=== PATIENT | female | born 2000 | race African-American/Black ===

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

== ENCOUNTER 2021-05-23 14:13 | Emergency (ER) | payer MEDICAID, SELFPAY ==
[2021-05-23 14:14] VITALS: BP 162/91; PULSE 101; RESP 17; TEMP 36.2; O2SAT 98; BMI 50.2
[2021-05-23] MEDS: Naproxen 250 MG Tablet 500 MG PO (14:36)
--- NOTE | 2021-05-23 14:37 | EDS_ITS ---
HPI <Dr. Erica Choudhury MD - Last Filed: 05/23/21 16:15> History of Present Illness Chief Complaint: Cold Sx <KIRAN WAY - Last Filed: 05/23/21 15:36> History of Present Illness Informant: patient Onset/Context/Timing Onset: Yesterday Context: Gradual Onset Timing: Continuous Current Severity: 09/20 Narrative Narrative: Patient presents secondary to sore throat and productive cough with chest pain. Patient developed sore throat yesterday and cough with yellow/clear sputum today. Patient describes chest pain, 09/20, as burning and worse with cough. Patient took Tylenol at 10 AM. Patient denies fever, chills, body aches. Patient took home Covid test yesterday which was negative. PFSH <Dr. Erica Choudhury MD - Last Filed: 05/23/21 16:15> PFSH Medical History no medical history Home Medications NK 05/23/21 [History Last Taken Unknown] Allergy/AdvReac Type Severity Reaction Status Date / Time amoxicillin [From Augmentin] Allergy Rash Verified 05/23/21 14:15 clavulanic acid Allergy Rash Verified 05/23/21 14:15 [From Augmentin] Surgical History no surgical history Social History (Updated 05/23/21 @ 14:[address]) Smoking Status: Current some day smoker tobacco type: cigarettes alcohol intake: current alcohol intake frequency: a few times a month substance use type: does not use <KIRAN WAY - Last Filed: 05/23/21 15:36> PFS no medical history no surgical history <KIRAN WAY - Last Filed: 05/23/21 15:36> ROS ED Constitutional Constitutional ED: Denies chills or fever(s) Eyes Eyes: Denies blurry vision or diplopia ENT ENT ED: Reports sore throat and other Details: Pain with swallowing ; Denies ear pain or rhinorrhea Cardiovascular Cardiovascular: Reports chest pain; Denies dizziness or dyspnea at rest Respiratory/Chest Respiratory/Chest: Reports cough and sputum; Denies dyspnea Gastrointestinal Gastrointestinal: Denies abdominal pain, nausea or vomiting Genitourinary Genitourinary ED: Denies dysuria or hematuria Musculoskeletal Musculoskeletal: Denies arthralgias, myalgias or neck pain Integumentary Denies rash Neurologic Neurologic: Denies headache(s) or weakness Psychiatric Psychiatric: Denies depression Endocrine Endocrinology: Denies polydipsia or polyuria EXAM <Dr. Erica Choudhury MD - Last Filed: 05/23/21 16:15> Physical Exam Const Vital Signs: 05/23/21 14:14 05/23/21 14:20 Temperature 97.2 F L Temperature Source Temporal Pulse Rate 101 H Respiratory Rate 17 Respiratory Effort Normal Non-Labored Respiratory Depth Normal Respiratory Pattern Normal Blood Pressure 162/91 H Blood Pressure Mean 114 Pulse Ox 98 Oxygen Delivery Method Room Air <KIRAN WAY - Last Filed: 05/23/21 15:36> Physical Exam Const Vital Signs: 05/23/21 14:14 05/23/21 14:20 Temperature 97.2 F L Temperature Source Temporal Pulse Rate 101 H Respiratory Rate 17 Respiratory Effort Normal Non-Labored Respiratory Depth Normal Respiratory Pattern Normal Blood Pressure 162/91 H Blood Pressure Mean 114 Pulse Ox 98 Oxygen Delivery Method Room Air Positive well nourished and well developed General Appearance ED: well developed HEENT Reports TM's clear and moist mucous membranes normocephalic Face and Sinus: sinuses nontender Nose: nares normal and no nasal discharge Tympanic Membrane ED: Yes TM's clear Throat: uvula midline, tonsils abnormal bilateral (2+) erythema and posterior oropharynx abnormal Positive for erythema; Negative for hoarseness Eyes PERRL and EOMs intact bilaterally Neck no lymphadenopathy and supple General: Negative for tenderness Chest Wall palpation of chest normal Resp normal respiratory effort and clear to auscultation bilaterally Cardio regular rate and regular rhythm GI normal to inspection, nondistended, normoactive bowel sounds and non-tender Extremity normal to inspection Neuro oriented x3 Sensorium / Orientation: alert Psych mental status grossly normal Skin no rashes or lesions noted MDM <Dr. Erica Choudhury MD - Last Filed: 05/23/21 16:15> MDM Radiography Diagnostic Testing: Clinical Impression(s) from Imaging Studies Chest X-Ray 05/23/21 14:40 IMPRESSION: Normal x-ray examination of the chest. Electronically Signed: Eusebio Casey MD at 15:20 EST , Treatment and Re-Evaluation Narrative: Patient seen and evaluated with TELE[employer] student. I personally interviewed and examined the patient. I was involved in all aspects of patient's orders, interpretation of results, and treatment. Patient present secondary to chest congestion, sore throat, cough. No fever or chills. She reports coworker ill with similar symptoms. She does report yellow sputum when she is able to produce it. Denies significant shortness of breath or wheezing. Patient sitting upright in bed no acute distress. Nontoxic appearing. She was observed ambulating to the room without difficulty. Head and neck examination reveals posterior pharyngeal drainage. Uvula midline. Heart is regular rate and rhythm. Lung sounds are clear. Abdomen is soft and nontender. Neuro exam unremarkable. Covid swab obtained and negative. Chest x-ray per my interpretation reveals no focal infiltrate. Radiologist interpretation also reviewed. Patient given supportive care instructions at home. Return instructions given. <KIRAN WAY - Last Filed: 05/23/21 15:36> [facility] MDM Narrative Medical decision making narrative: Patient treated with naproxen for chest pain. Rapid Covid and chest x-ray obtained. Lab Data Attestation: I reviewed the patient's lab results. Radiography Chest X-Ray - ED: 2 View, Normal and No Infiltrates Diagnostic Testing: Clinical Impression(s) from Imaging Studies Chest X-Ray 05/23/21 14:40 IMPRESSION: Normal x-ray examination of the chest. Electronically Signed: Eusebio Casey MD at 15:20 EST , Treatment and Re-Evaluation Narrative: On reevaluation, patient states chest pain is improved. Results discussed with patient, and informed likely viral cause. Patient understanding of home care instructions for symptomatic treatment. Patient will be given fo llow-up instructions. Patient understands reasons for return. Discharge Plan Triage Chief Complaint: Cold Sx ED Provider: Erica Choudhury Dx/Rx/DC Orders Clinical Impression: Viral syndrome Instructions: ED Viral Syndrome (Adult) Prescriptions: No Action NK RF: 0 Primary Care Provider: Care Physician,No Primary Referrals: Willie Finnegan MD [STAFF PHYSICIAN] - 10-14 Days if not better Care Physician,No Primary [Primary Care Provider] - Disposition Disposition: Home, Self Care Discharge Date/Time: 05/23/21 15:40
--- NOTE | 2021-05-23 14:40 | RAD_ITS ---
STUDY: X-RAY CHEST REASON FOR EXAM: Female, 20 years old. productive cough TECHNIQUE: PA and lateral views of the chest. COMPARISON: None. FINDINGS: The lungs are clear and expanded. There is no demonstrated pleural abnormality. Normal size heart. Normal mediastinum and alberto. Normal visualized pulmonary arteries. Normal visualized aortic arch and descending thoracic aorta. Normal visualized thoracic spine. Normal visualized ribs, clavicles, and shoulders. There is no demonstrated abnormality of the visualized soft tissue structures of the upper abdomen. RAD/Chest PA and Lateral IMPRESSION: Normal x-ray examination of the chest. Electronically Signed: Eusebio Casey MD at 15:20 EST ,
== END 2021-05-23 15:40 | disposition home or self-care (01) ==
PROVIDERS: Emergency Provider Emergency Medicine; Visit Provider Emergency Medicine
DX: B34.9 Viral infection, unspecified (principal); F17.210 Nicotine dependence, cigarettes, uncomplicated; R07.9 Chest pain, unspecified; Z20.822 Contact with and (suspected) exposure to COVID-19; R05.9 Cough, unspecified
CPT/HCPCS: 71046; 87811; 99283

== ENCOUNTER 2021-09-06 16:13 | Emergency (ER) | payer MEDICAID, SELFPAY ==
[2021-09-06 16:14] VITALS: BP 154/99; PULSE 108; RESP 16; TEMP 36.6; O2SAT 100; BMI 53.6
--- NOTE | 2021-09-06 16:35 | EX.ED.DYSGE1 ---
HPI History of Present Illness Chief Complaint: Fatigue Informant: patient Onset/Context/Timing Onset: Weeks Narrative Narrative: Patient presents with generalized fatigue and back aches. She started her last menstrual cycle 1 month ago. She bled for 3 weeks. She states she started to spot again and believe she is going to start which would be her normal time. She states this is very abnormal for her. She usually bleeds for about 4 days at a time and is very regular. She denies possibility of . Because she is fatigued and has backaches a coworker suggested she should be evaluated. She does not have a doctor to go to so she came to the emergency room. [facility] PFS Medical History no medical history no medical history Home Medications NK 05/23/21 [History Last Taken Unknown] Allergy/AdvReac Type Severity Reaction Status Date / Time amoxicillin [From Augmentin] Allergy Rash Verified 09/06/21 16:16 clavulanic acid Allergy Rash Verified 09/06/21 16:16 [From Augmentin] Surgical History no surgical history Social History Smoking Status: Current some day smoker tobacco type: cigarettes alcohol intake: current alcohol intake frequency: a few times a month substance use type: does not use ROS ROS ED Constitutional Constitutional ED: Denies chills or fever(s) Eyes Eyes: Denies change in vision or discharge from eye(s) ENT ENT ED: Denies discharge from eye(s), rhinorrhea or sore throat Cardiovascular Cardiovascular: Denies chest pain or palpitations Respiratory/Chest Respiratory/Chest: Denies cough or dyspnea Gastrointestinal Gastrointestinal: Denies abdominal pain, diarrhea, nausea or vomiting Genitourinary Genitourinary ED: Denies difficulty urinating or dysuria Musculoskeletal Musculoskeletal: Reports back pain; Denies extremity pain Integumentary Denies Abrasions or rash Neurologic Neurologic: Reports other Details: Generalized fatigue ; Denies headache(s) or weakness Allergic/Immunologic Allergic/Immunologic ED: Denies lip swelling or urticaria EXAM Physical Exam Const Vital Signs: 09/06/21 16:14 09/06/21 16:28 09/06/21 18:20 Temperature 97.8 F Temperature Source Temporal Pulse Rate 108 H Respiratory Rate 16 16 Respiratory Effort Normal Non-Labored Blood Pressure 154/99 H Blood Pressure Mean 117 Pulse Ox 100 Oxygen Delivery Method Room Air Positive well nourished and well developed General Appearance ED: well developed HEENT Reports moist mucous membranes Eyes PERRL and EOMs intact bilaterally Chest Wall inspection of chest normal and palpation of chest normal Resp normal respiratory effort and clear to auscultation bilaterally Cardio regular rate and regular rhythm GI normal to inspection, nondistended, normoactive bowel sounds, non-tender and non-distended Extremity normal to inspection Neuro oriented x3 and no sensory deficits noted Motor Exam: strength 5/5 throughout Skin no rashes or lesions noted MDM MDM MDM Narrative Medical decision making narrative: Patient is given IV fluids and Toradol. Lab work and urinalysis obtained. Lab Data Attestation: I reviewed the patient's lab results. Labs: Laboratory Results - last 24 hr 09/06/21 09/06/21 09/06/21 16:42 16:42 16:42 WBC 12.5 H RBC 4.64 Hgb 12.5 Hct 41.6 MCV 89.7 MCH 26.9 L MCHC 30.0 L RDW Std Deviation 45.1 H RDW Coeff of Lux 13.9 Plt Count 489 H MPV 9.8 Immature Gran % (Auto) 0.400 Neut % (Auto) 65.5 Lymph % (Auto) 24.9 [place] % (Auto) 7.0 Eos % (Auto) 1.7 Baso % (Auto) 0.5 Absolute Neuts (auto) 8.2 H Absolute Lymphs (auto) 3.11 Nucleated RBC % 0 Sodium 140 Potassium 3.7 Chloride 107 Carbon Dioxide 27.0 Anion Gap 6 BUN 17 Creatinine 1.01 Estim Creat Clear Calc 99.31 Est GFR (MDRD) Af Amer 89 Est GFR (MDRD) Non-Af 74 BUN/Creatinine Ratio 16.8 Glucose 105 Calcium 8.7 Serum , Qual NEGATIVE Urine Color Urine Clarity Urine pH Ur Specific [place] Urine Protein Urine Glucose (UA) Urine Ketones Urine Occult Blood Urine Nitrite Urine Bilirubin Urine Urobilinogen Ur Leukocyte Esterase 09/06/21 17:47 WBC RBC Hgb Hct MCV MCH MCHC RDW Std Deviation RDW Coeff of Lux Plt Count MPV Immature Gran % (Auto) Neut % (Auto) Lymph % (Auto) [place] % (Auto) Eos % (Auto) Baso % (Auto) Absolute Neuts (auto) Absolute Lymphs (auto) Nucleated RBC % Sodium Potassium Chloride Carbon Dioxide Anion Gap BUN Creatinine Estim Creat Clear Calc Est GFR (MDRD) Af Amer Est GFR (MDRD) Non-Af BUN/Creatinine Ratio Glucose Calcium Serum , Qual Urine Color Yellow Urine Clarity Clear Urine pH 5.0 Ur Specific [place] 1.030 Urine Protein 15 H Urine Glucose (UA) Normal Urine Ketones Negative Urine Occult Blood Negative Urine Nitrite Negative Urine Bilirubin Negative Urine Urobilinogen Normal Ur Leukocyte Esterase Negative Treatment and Re-Evaluation Narrative: Lab work reveals a white count of 12.5 but normal differential. Chemistry studies unremarkable. test negative. Urinalysis reveals no infection. Test results discussed with the patient. She will continue supportive care. She will be referred to Dr. Guo, on-call for no doc [employer]LEVISION [employer]. Her mother is also researching area TELEVIS[employer]CHOR's for her to follow-up with. Return instructions provided. Discharge Plan Triage Chief Complaint: Fatigue ED Provider: Erica Choudhury Dx/Rx/DC Orders Clinical Impression: Generalized weakness, Menorrhagia Instructions: ED Heavy Menstrual Bleeding, ED Weakness (Uncertain Cause) Prescriptions: No Action NK Primary Care Provider: Care Physician,No Primary Referrals: Erica Arguelles DO [STAFF PHYSICIAN] - As Needed Care Physician,No Primary [Primary Care Provider] - Disposition Disposition: Home, Self Care
[2021-09-06] MEDS: Ketorolac 30 MG/ML Syringe IV (16:52)
[2021-09-06] MEDS: 0.9% Normal Saline 1,000 ML 1000 ML IV (16:52)
[2021-09-06 17:00] LABS: Absolute Lymphocyte Count 3.11 X10^3/uL (0.83-4.51); Absolute Neutrophil Count 8.2 X10^3/uL (2.0-7.7); Basophil# 0.06 X10^3/uL; Basophil% 0.5 % (0-1); Eosinophil# 0.21 X10^3/uL; Eosinophils% 1.7 % (0-5); Hematocrit 41.6 % (37-47); Hemoglobin 12.5 g/dL (12.0-15.0); Lymphocyte # 3.11 X10^3/ul (0.83-4.51); Lymphocyte % 24.9 % (19-41); Mean Corpuscular Hgb 26.9 pg (27.0-32.0); Mean Corpuscular Volume 89.7 fL (81-99); Mean Platelet Vol. 9.8 fl (6.2-12.0); Monocyte# 0.87 X10^3/uL; NRBC Flagged by Analyzer 0 % (0-5); Neutrophil % 65.5 % (47-70); Platelet Count 489 K/mm3 (150-450); RBC Distribution Width CV 13.9 % (11.6-14.6); RBC Distribution Width SD 45.1 fl (35.1-43.9); Red Blood Count 4.64 M/mm3 (4.2-5.4); White Blood Count 12.5 K/mm3 (4.4-11.0)
[2021-09-06 17:12] LABS: Internal QC Validated? YES +Cl - CLEAR BKGD; Pregnancy, Serum, hCG Quali. NEGATIVE Negative
[2021-09-06 17:13] LABS: Anion Gap 6 (5-15); BUN 17 mg/dL (7-18); BUN/Creat Ratio 16.8 RATIO (10-20); Calcium,Total 8.7 mg/dL (8.5-10.1); Chloride 107 mmol/L (98-107); Creatinine, Serum 1.01 mg/dL (0.55-1.02); EST Glomerular Filtration Rate 74 mL/min (>60); Est Glom Filt Rate - Afr Amer 89 mL/min (>60); Estimated Creatinine Clearance 99.31 ml/min; Glucose 105 mg/dL (74-106); Potassium 3.7 mmol/L (3.5-5.1); Sodium Level 140 mmol/L (136-145)
[2021-09-06 17:56] LABS: Red Blood Cells-Urine 0 SEEN /hpf (0-5)
[2021-09-06 18:01] LABS: Color, Urine Yellow (Yellow); Glucose, Dipstick Normal (Normal); Ketone-Dipstick Negative (Negative); Leukocyte Esterase-Dipstick Negative /ul (Negative); Nitrite-Dipstick Negative (Negative); Occult Blood-Urine Negative /ul (Negative); Protein-Dipstick 15 mg/dl (Negative); Urine Bilirubin Dipstick Negative (Negative); Urine Clarity Clear (Clear); Urine Urobilinogen Normal (Normal)
[2021-09-06 18:20] VITALS: RESP 16
[2021-09-06 18:21] LABS: Squamous Epithelial Cells - UA 5-10 SEEN /hpf (5-10); White Blood Cells 0-5 SEEN /hpf (0-5)
[2021-09-06 18:22] LABS: Bacteria 3+ /hpf (None Seen); Mucous, Urine 2+ /hpf (<or=2+)
== END 2021-09-06 18:32 | disposition home or self-care (01) ==
PROVIDERS: Emergency Provider Emergency Medicine; Visit Provider Emergency Medicine
DX: R53.1 Weakness (principal); N92.0 Excessive and frequent menstruation with regular cycle; F17.210 Nicotine dependence, cigarettes, uncomplicated
CPT/HCPCS: 80048; 81001; 84703; 85025; 96361; 96374; 99283; J7030; A4216

== ENCOUNTER 2021-10-11 14:45 | Emergency (ER) | payer MEDICAID, SELFPAY ==
[2021-10-11 14:46] VITALS: BP 163/101; PULSE 76; RESP 16; TEMP 36.6; O2SAT 99; BMI 52.9
--- NOTE | 2021-10-11 15:22 | ED.VIS.LOWEX ---
HPI History of Present Illness HPI Narrative: Patient presents with right ankle injury that occurred yesterday. Patient states she inverted her right ankle. Patient did not hear any snapping or popping sensation. Patient states her pain is sharp and it is worse with any standing or weightbearing. Patient denies any paresthesias or weakness. Patient denies any pain over the fifth metatarsal or proximal fibula. Patient denies any head injury or loss of consciousness. Patient denies any other injuries. Chief Complaint: Lower Extremity Injury Informant: patient Occured/Mechanism Comment: Inversion injury Onset/Context/Timing Onset: Yesterday Context: Sudden Onset Timing: Continuous Quality of Pain: Sharp Location: Right ankle Worsened by: Standing Relieved by: Rest Associated Symptoms Associated Symptoms: Negative for Parasthesia, Weakness or Loss of Funtion PFSH PFS Medical History No active medical problems no medical history Home Medications NK 05/23/21 [History Last Taken Unknown] Allergy/AdvReac Type Severity Reaction Status Date / Time amoxicillin [From Augmentin] Allergy Rash Verified 10/11/21 15:02 clavulanic acid Allergy Rash Verified 10/11/21 15:02 [From Augmentin] Surgical History no surgical history no surgical history Social History Smoking Status: Former smoker alcohol intake: current alcohol intake frequency: a few times a month substance use type: does not use ROS ROS ED Constitutional Constitutional ED: Denies chills or fever(s) Eyes Eyes: Denies blurry vision or change in vision ENT ENT ED: Denies rhinorrhea or sore throat Cardiovascular Cardiovascular: Denies chest pain or palpitations Respiratory/Chest Respiratory/Chest: Denies cough or dyspnea Gastrointestinal Gastrointestinal: Denies nausea or vomiting Genitourinary Genitourinary ED: Denies dysuria or hematuria Musculoskeletal Musculoskeletal: Denies back pain or neck pain Integumentary Denies abscess or rash Neurologic Neurologic: Denies headache(s) or weakness Allergic/Immunologic Allergic/Immunologic ED: Denies mouth swelling or urticaria EXAM Physical Exam Const Vital Signs: 10/11/21 14:46 Temperature 97.9 F Temperature Source Temporal Pulse Rate 76 Respiratory Rate 16 Blood Pressure 163/101 H Blood Pressure Mean 121 Pulse Ox 99 Oxygen Delivery Method Room Air Positive well nourished, well developed and obese General Appearance ED: well developed and NAD Nutritional Appearance: obese HEENT Reports moist mucous membranes Neck full ROM Extremity Extremity Narrative: There is tenderness over the medial and lateral malleoli of the right ankle. There is some mild edema. There is no deformity noted. There is no bony crepitance or step-off. Range of motion was limited in all motions of the right ankle secondary to pain. There is no tenderness over the fifth metatarsal. There is no tenderness over the proximal fibula. Pedal pulses are equal bilaterally. Sensation was intact to light touch in all digits. Neuro oriented x3, CN's II-XII intact bilaterally, moves all extremities and no sensory deficits noted Sensorium / Orientation: alert Motor Exam: strength 5/5 throughout Psych mental status grossly normal MDM MDM MDM Narrative Medical decision making narrative: X-rays of the right ankle were obtained. There are 3 views. On my interpretation, there is no acute fracture. There is no dislocation. There is no soft tissue swelling. Radiologist also interpreted the x-rays and agrees. Patient was given an Aircast. Patient was instructed to ice and elevate the right ankle. Patient was instructed to take ibuprofen or Tylenol as needed for pain. Patient was instructed to follow-up with her primary care physician in 5 to 7 days. Patient understood and was agreeable with the plan. All questions were answered. Radiography Diagnostic Testing: Clinical Impression(s) from Imaging Studies Ankle X-Ray 10/11/21 15:26 IMPRESSION: Normal x-ray examination of the ankle. Electronically Signed: Narayan Lea MD at 17:33 EDT , Discharge Plan Triage Chief Complaint: Lower Extremity Injury ED Provider: Lance Way Dx/Rx/DC Orders Clinical Impression: Right ankle sprain Instructions: ED Ankle Sprain (Adult) Prescriptions: No Action NK Primary Care Provider: Care Physician,No Primary Referrals: Malika Dhillon MD [Med Staff - Crm Functional Analyst] - 5-7 Days Care Physician,No Primary [Primary Care Provider] - Disposition Disposition: Home, Self Care
--- NOTE | 2021-10-11 15:26 | RAD_ITS ---
STUDY: X-RAY - RIGHT ANKLE REASON FOR EXAM: Female, 20 years old. Injury/Pain TECHNIQUE: 3 view(s) of the ankle. COMPARISON: None. FINDINGS: Normal visualized distal tibia and fibula. Normal medial and lateral malleoli. Normal tibiotalar articulation and ankle mortise. Normal visualized talus and calcaneus. The visualized subtalar, talonavicular, calcaneocuboid and tarsal articulations are normal. The soft tissue structures are unremarkable. RAD/Ankle min 3 Views IMPRESSION: Normal x-ray examination of the ankle. Electronically Signed: Narayan Lea MD at 17:33 EDT ,
== END 2021-10-11 18:23 | disposition home or self-care (01) ==
PROVIDERS: Emergency Provider Emergency Medicine; Visit Provider Emergency Medicine
DX: S93.401A Sprain of unspecified ligament of right ankle, initial encounter (principal); E66.9 Obesity, unspecified; Z87.891 Personal history of nicotine dependence; X50.1XXA Overexertion from prolonged static or awkward postures, initial encounter
CPT/HCPCS: 73610; 99283

== ENCOUNTER 2021-12-21 08:13 | Emergency (ER) | payer MEDICAID, SELFPAY ==
[2021-12-21 08:14] VITALS: BP 137/81; PULSE 81; RESP 17; TEMP 36.4; O2SAT 98; BMI 55.4
[2021-12-21] MEDS: Ibuprofen 400 MG Tablet 800 MG PO (08:56)
--- NOTE | 2021-12-21 08:56 | EX.ED.UPPERE ---
HPI History of Present Illness Chief Complaint: Upper Extremity Injury Narrative Narrative: 21-year-old female who denies significant past medical history, [id number], states she was carrying a bag of groceries yesterday, put it down, and had pain in her right paraspinal musculature and right back. Pain is now worse with movement. She has tried Tylenol, lidocaine patch, and heat without relief of her symptoms. She states is getting worse and is sore on the area near her back. The pain can radiate down her arm on occasion with certain movements. No fevers or chills. No direct trauma to her back or neck. [facility] Medical History No active medical problems Home Medications cyclobenzaprine 10 mg tablet 10 mg PO TID PRN muscle spasm #20 tabs 12/21/21 [Rx Last Taken Unknown] ibuprofen 800 mg tablet 800 mg PO Q8H PRN pain #30 tabs 12/21/21 [Rx Last Taken Unknown] Allergy/AdvReac Type Severity Reaction Status Date / Time amoxicillin [From Augmentin] Allergy Rash Verified 12/21/21 08:14 clavulanic acid Allergy Rash Verified 12/21/21 08:14 [From Augmentin] Social History Smoking Status: Current every day smoker tobacco type: cigarettes alcohol intake: current alcohol intake frequency: a few times a month substance use type: does not use ROS ROS ED ROS Narrative Constitutional: No fever, no chills. HEENT: No sore throat. No neck pain. No loss of vision. No rhinorrhea. Cardiovascular: No chest pain. No palpitations. No pedal edema. Respiratory: No cough, no shortness of breath. Abdominal: No abdominal pain. No nausea. No vomiting. Genitourinary: No dysuria. No hematuria. Musculoskeletal: Right thoracic back pain/paraspinal muscle pain and right posterior shoulder pain. Neurologic: No headaches. No dizziness. No lightheadedness. Skin: No rash. No change in color. Psychiatric: No depression. No anxiety. EXAM Physical Exam Narrative Exam Narrative: Afebrile. Vital signs noted. HEENT: Normocephalic. Atraumatic. PERRL, EOMI. Neck soft and supple. No point tenderness or step off. Cardiovascular: Regular rate and rhythm. No murmurs, rubs, or gallops appreciated. Respiratory: No tachypnea. Lungs clear to auscultation bilaterally. Gastrointestinal: Abdomen soft, nontender, with normoactive bowel sounds. No rebound or guarding. Neurological: Awake. Alert. Nonfocal, nonlateralizing. Skin: No rash. Normal color. No pallor. Musculoskeletal: No pedal edema. Full range of motion extremities. Mild tenderness to palpation along the right rhomboid area and paraspinal thoracic musculature on right. Tenderness more medially to scapula. Full range of motion of right shoulder without clinical evidence of dislocation. Neurovascular intact distally with full range of motion of elbow and wrist. Palpable radial pulse. Const Vital Signs: 12/21/21 08:14 Temperature 97.6 F L Temperature Source Temporal Pulse Rate 81 Respiratory Rate 17 Blood Pressure 137/81 H Blood Pressure Mean 99 Pulse Ox 98 Oxygen Delivery Method Room Air MDM MDM MDM Narrative Medical decision making narrative: I do not feel x-rays are indicated. Given her tenderness along the musculature, I am concerned more for rhomboid strain and thoracic paraspinal muscle strain with spasm. She is given ibuprofen here 800 mg. She will continue heat and ice application at home. I wrote her prescription for Flexeril and ibuprofen. She was referred to a primary care physician. I feel she be discharged safely home with follow-up for treatment of muscle strain. Return instructions to the emergency department were reviewed. Disposition is discharged home in stable condition. Discharge Plan Triage Chief Complaint: Upper Extremity Injury ED Provider: Nik Flannery Dx/Rx/DC Orders Clinical Impression: Strain of thoracic back region, Strain of right rhomboid muscle Instructions: ED Muscle Spasm, ED Thoracic Spine Strain Prescriptions: New ibuprofen 800 mg tablet 800 mg PO Q8H PRN (Reason: pain) Qty: 30 0RF cyclobenzaprine 10 mg tablet 10 mg PO TID PRN (Reason: muscle spasm) Qty: 20 0RF Primary Care Provider: Care Physician,No Primary Referrals: Willie Finnegan MD [Med Staff - Retail Security Professional] - 1 Week if not improving Care Physician,No Primary [Primary Care Provider] - Disposition Disposition: Home, Self Care
== END 2021-12-21 09:04 | disposition home or self-care (01) ==
PROVIDERS: Emergency Provider Emergency Medicine; Visit Provider Emergency Medicine
DX: S23.9XXA Sprain of unspecified parts of thorax, initial encounter (principal); F17.210 Nicotine dependence, cigarettes, uncomplicated; M62.830 Muscle spasm of back; X50.9XXA Other and unspecified overexertion or strenuous movements or postures, initial encounter
CPT/HCPCS: 99282